=== PATIENT | female | born 1945 | race Caucasian/White ===

== ENCOUNTER 2017-11-02 23:03 | Inpatient (IN) | payer MEDICARE, OTHER ==
[~2017-11-02] VITALS: Ht 152.4 cm; Wt 40.8 kg
[2017-11-03 03:30] VITALS: BP 91/46
[2017-11-03] MEDS ORDERED: FUROSEMIDE 40 MG/4 ML VIAL IV SCH ×2 (05:00→17:00)
[2017-11-03] MEDS ORDERED: VANCOMYCIN 1 GM in IV D5W 250 ML IV ONE (05:00)
[2017-11-03] MEDS ORDERED: MAGNESIUM HYDROXIDE 30 ML UDC PO PRN (05:00)
[2017-11-03] MEDS ORDERED: ZOLPIDEM TARTRATE 5 MG TABLET PO PRN (05:00)
[2017-11-03] MEDS ORDERED: ONDANSETRON HCL/PF 4 MG/2 ML VIAL IVP PRN (05:00)
[2017-11-03] MEDS ORDERED: Z GUARD REMEDY 2 OZ OINT TP PRN (05:00)
[2017-11-03] MEDS ORDERED: HYDROCODONE/APAP 5/325MG 1 EACH TABLET PO PRN (05:00)
[2017-11-03] MEDS ORDERED: MAG HYDROX/AL HYDROX/SIMETH 30 ML UDC PO PRN (05:00)
[2017-11-03] MEDS ORDERED: CARV3.12 PO (05:02)
[2017-11-03] MEDS ORDERED: LEVO25TA7 PO (05:02)
[2017-11-03] MEDS ORDERED: PIPERACILLIN /TAZOBACTAM 3.375 G VIAL IV ONE (05:19)
[2017-11-03] MEDS ORDERED: VANCOMYCIN 1 GM VIAL ONE (05:19)
[2017-11-03 05:48] VITALS: BP 95/56
[2017-11-03] MEDS ORDERED: PIPERACILLIN /TAZOBACTAM 3.375 G in IV NS 0.9% 50 ML IV SCH (06:00)
[2017-11-03 08:00] VITALS: BP 97/41
[2017-11-03] MEDS ORDERED: LEVALBUTEROL HCL NEB 1.25 MG/0.5 ML VIAL.NEB IH SCH (11:30)
[2017-11-03] MEDS: PIPERACILLIN /TAZOBACTAM 2.25 G in IV D5W 50 ML IV SCH ×2 (12:12→19:49)
[2017-11-03] MEDS: IV NS 0.9% 1,000 ML IV PRN (12:12)
[2017-11-03] MEDS ORDERED: FEE PK DOSING 1 MIN EA MC ONE (12:42)
[2017-11-03] MEDS: ASPIRIN 81 MG TAB.CHEW PO SCH (12:44)
[2017-11-03] MEDS: PANTOPRAZOLE 40 MG TABLET.DR PO SCH (12:44)
[2017-11-03 13:27] LABS: MAGNESIUM 2.1 mg/dL (1.8-2.4)
[2017-11-03] MEDS: ALBUTEROL FS 2.5 MG/3 ML VIAL.NEB NEB SCH ×2 (14:51→19:43)
[2017-11-03] MEDS: ACETYLCYSTEINE 10% SOLN 400 MG/4 ML VIAL NEB SCH ×2 (15:30→23:12)
[2017-11-03] MEDS: ACETAMINOPHEN 325 MG TABLET PO PRN ×2 (15:59→22:22)
[2017-11-03] MEDS: VANCOMYCIN 500 MG in IV D5W 100 ML IV SCH (16:00)
[2017-11-03 16:30] VITALS: BP 98/52
[2017-11-03 20:00] VITALS: BP 97/54
[2017-11-04] MEDS: PIPERACILLIN /TAZOBACTAM 2.25 G in IV D5W 50 ML IV SCH ×4 (00:58→17:48)
[2017-11-04] MEDS: IV NS 0.9% 1,000 ML IV PRN ×2 (00:59→21:11)
[2017-11-04] MEDS: ALBUTEROL FS 2.5 MG/3 ML VIAL.NEB NEB SCH ×4 (01:10→20:06)
[2017-11-04] MEDS: VANCOMYCIN 500 MG in IV D5W 100 ML IV SCH ×2 (05:32→16:18)
[2017-11-04 07:03] LABS: BASOPHILS % (AUTO) 0.2 % (0.0-2.0); EOSINOPHILS # (AUTO) 0.3 /CMM (0.0-0.7); EOSINOPHILS % (AUTO) 1.4 % (0.0-6.0); HEMATOCRIT 31 % (33-45); HEMOGLOBIN 10.4 g/dL (11.5-14.8); LYMPHOCYTES % (AUTO) 8.8 % (20.0-44.0); MEAN CORPUSCULAR HEMOGLOBIN 33 PG (26.0-33.0); MEAN CORPUSCULAR HGB CONC 34 g/dl (31.0-36.0); MEAN CORPUSCULAR VOLUME 96 fL (82-100); MONOCYTES # (AUTO) 1.1 /CMM (0.1-1.30); MONOCYTES % (AUTO) 4.6 % (2.0-12.0); NEUTROPHILS # (AUTO) 19.3 /CMM (1.8-8.9); PLATELET COUNT (AUTO) 296 /CMM (150-450); RDW COEFFICIENT OF VARIATION 14.1 (11.5-15.0); RED BLOOD CELL COUNT(AUTO) 3.19 MIL/uL (4.0-5.2); WHITE BLOOD COUNT (AUTO) 22.8 K/uL (4.3-11.0)
[2017-11-04] MEDS: ACETYLCYSTEINE 10% SOLN 400 MG/4 ML VIAL NEB SCH ×2 (07:18→15:30)
[2017-11-04 07:21] LABS: CALCIUM, SERUM 8.1 mg/dL (8.5-10.1); CREATININE 0.8 mg/dL (0.6-1.3); PHOSPHORUS 3.7 mg/dL (2.5-4.9); POTASSIUM 3.1 mmol/L (3.5-5.1)
[2017-11-04 07:23] LABS: THYROID STIMULATING HORMONE 3.589 uIU/mL (0.358-3.74)
[2017-11-04 08:00] VITALS: BP 91/48
[2017-11-04] MEDS: PANTOPRAZOLE 40 MG TABLET.DR PO SCH (08:25)
[2017-11-04] MEDS: LEVOTHYROXINE SODIUM 25 MCG TABLET PO SCH (08:25)
[2017-11-04] MEDS: ASPIRIN 81 MG TAB.CHEW PO SCH (08:25)
[2017-11-04 08:57] VITALS: BP 91/48
[2017-11-04 09:35] LABS: BAND % (MANUAL) 2 % (0.0-5.0); EOSINOPHILS % (MANUAL) 3 % (0-4); LYMPHOCYTES % (MANUAL) 8 % (16-48); MONOCYTES % (MANUAL) 5 % (0-11.0); NEUTROPHILS % (MANUAL) 82 (42-76)
[2017-11-04] MEDS: POTASSIUM CHLORIDE 20 MEQ TAB.PRT.SR PO SCH ×2 (12:43→13:57)
[2017-11-04] MEDS ORDERED: NA PHOS,M-B/NA PHOS,DI-BA 1 EA ENEMA RC PRN (14:30)
[2017-11-04] MEDS ORDERED: MAGNESIUM CITRATE 296 ML BOTTLE PO ONE (15:00)
[2017-11-04] MEDS ORDERED: PEG 3350/NA SULF,BICARB,CL/KCL 4,000 ML BOTTLE PO ONE (15:00)
[2017-11-04 16:00] VITALS: BP 100/58
[2017-11-04 16:30] LABS: ALBUMIN 1.8 g/dL (3.4-5.0); BILIRUBIN,DIRECT 0.2 mg/dL (0.0-0.2); BILIRUBIN,TOTAL 0.6 mg/dL (0.2-1.0); CALCIUM, SERUM 8.1 mg/dL (8.5-10.1); CREATININE 0.8 mg/dL (0.6-1.3); POTASSIUM 3.2 mmol/L (3.5-5.1); TOTAL PROTEIN, SERUM 6.5 g/dL (6.4-8.2)
[2017-11-04 20:00] VITALS: BP 98/47
[2017-11-04] MEDS: methylPREDNISolone SOD SUCC 40 MG/ML VIAL IV SCH (21:28)
[2017-11-04] MEDS: ACETAMINOPHEN 325 MG TABLET PO PRN (21:29)
[2017-11-05] MEDS: ACETYLCYSTEINE 10% SOLN 400 MG/4 ML VIAL NEB SCH ×3 (00:32→14:37)
[2017-11-05] MEDS: ALBUTEROL FS 2.5 MG/3 ML VIAL.NEB NEB SCH ×4 (00:34→20:40)
[2017-11-05] MEDS: PIPERACILLIN /TAZOBACTAM 2.25 G in IV D5W 50 ML IV SCH ×5 (00:37→23:40)
[2017-11-05 04:37] LABS: CALCIUM, SERUM 8.6 mg/dL (8.5-10.1); CREATININE 0.7 mg/dL (0.6-1.3); POTASSIUM 3.9 mmol/L (3.5-5.1)
[2017-11-05] MEDS: methylPREDNISolone SOD SUCC 40 MG/ML VIAL IV SCH (05:54)
[2017-11-05] MEDS: VANCOMYCIN 500 MG in IV D5W 100 ML IV SCH (06:31)
[2017-11-05] MEDS: IV NS 0.9% 1,000 ML IV PRN ×2 (06:49→23:40)
[2017-11-05 08:00] VITALS: BP_SYST 114; BP_DIAS 60; BP_DIAS 69
[2017-11-05] MEDS: ASPIRIN 81 MG TAB.CHEW PO SCH (10:14)
[2017-11-05] MEDS: PANTOPRAZOLE 40 MG TABLET.DR PO SCH (10:14)
[2017-11-05] MEDS: LEVOTHYROXINE SODIUM 25 MCG TABLET PO SCH (10:14)
[2017-11-05 11:40] LABS: BASOPHILS % (AUTO) 0.3 % (0.0-2.0); EOSINOPHILS % (AUTO) 0.1 % (0.0-6.0); HEMATOCRIT 33 % (33-45); HEMOGLOBIN 10.7 g/dL (11.5-14.8); LYMPHOCYTES % (AUTO) 6.6 % (20.0-44.0); MEAN CORPUSCULAR HEMOGLOBIN 32 PG (26.0-33.0); MEAN CORPUSCULAR HGB CONC 33 g/dl (31.0-36.0); MEAN CORPUSCULAR VOLUME 98 fL (82-100); MONOCYTES # (AUTO) 0.1 /CMM (0.1-1.30); MONOCYTES % (AUTO) 0.8 % (2.0-12.0); NEUTROPHILS # (AUTO) 13.3 /CMM (1.8-8.9); NEUTROPHILS % (AUTO) 92.2 % (43.0-81.0); PLATELET COUNT (AUTO) 361 /CMM (150-450); RDW COEFFICIENT OF VARIATION 15.2 (11.5-15.0); RED BLOOD CELL COUNT(AUTO) 3.34 MIL/uL (4.0-5.2); WHITE BLOOD COUNT (AUTO) 14.4 K/uL (4.3-11.0)
[2017-11-05 16:00] VITALS: BP 114/56
[2017-11-05] MEDS: VANCOMYCIN 0.75 GM in IV D5W 250 ML IV SCH (17:59)
[2017-11-05 20:00] VITALS: BP 104/63
[2017-11-05] MEDS: SOD FERRIC GLUC 125 MG in IV NS 0.9% 100 ML IV SCH (21:00)
[2017-11-05 23:59] LABS: APPEARANCE,URINE CLOUDY (CLEAR); BILIRUBIN,URINE NEGATIVE (NEGATIVE); BLOOD, URINE 3+ Ery/uL (NEGATIVE); COLOR,URINE YELLOW (YELLOW); KETONES,URINE NEGATIVE (NEGATIVE); LEUKOCYTE ESTERASE ,URINE NEGATIVE (NEGATIVE); NITRITE, URINE NEGATIVE (NEGATIVE); PROTEIN,URINE 1+ mg/dl (NEGATIVE); UGLUCOSE NEGATIVE (NEGATIVE)
[2017-11-06 00:04] LABS: BACTERIA,URINE Moderate /HPF (None Seen); SQUAMOUS EPITHELIAL CELL,UR None Seen /HPF (None Seen); URINE AMORPHOUS URATE Many /HPF (None Seen); WBC,URINE 0-2 /HPF (0-3)
[2017-11-06] MEDS: ACETYLCYSTEINE 10% SOLN 400 MG/4 ML VIAL NEB SCH ×4 (00:17→23:30)
[2017-11-06] MEDS: ALBUTEROL FS 2.5 MG/3 ML VIAL.NEB NEB SCH ×4 (02:12→20:12)
[2017-11-06] MEDS: VANCOMYCIN 0.75 GM in IV D5W 250 ML IV SCH ×2 (04:20→17:42)
[2017-11-06] MEDS: PIPERACILLIN /TAZOBACTAM 2.25 G in IV D5W 50 ML IV SCH ×4 (06:28→23:27)
[2017-11-06 07:37] LABS: CALCIUM, SERUM 8.5 mg/dL (8.5-10.1); CREATININE 0.7 mg/dL (0.6-1.3); POTASSIUM 3.4 mmol/L (3.5-5.1)
[2017-11-06 08:00] VITALS: BP 118/61
[2017-11-06] MEDS: ASPIRIN 81 MG TAB.CHEW PO SCH (08:54)
[2017-11-06] MEDS: LEVOTHYROXINE SODIUM 25 MCG TABLET PO SCH (08:55)
[2017-11-06] MEDS: PANTOPRAZOLE 40 MG TABLET.DR PO SCH (08:55)
[2017-11-06] MEDS ORDERED: POTASSIUM CHLORIDE 20 MEQ TAB.PRT.SR PO SCH (12:30)
[2017-11-06 16:00] VITALS: BP 108/66
[2017-11-06] MEDS ORDERED: DOXYCYCLINE 100 MG in IV D5W 100 ML IV SCH (18:21)
[2017-11-06 20:00] VITALS: BP 109/58
[2017-11-06] MEDS: SOD FERRIC GLUC 125 MG in IV NS 0.9% 100 ML IV SCH (20:29)
[2017-11-06] MEDS: DOXYCYCLINE 100 MG in IV D5W 100 ML IV SCH (21:31)
[2017-11-06] MEDS: IV NS 0.9% 1,000 ML IV PRN (21:53)
[2017-11-07] MEDS: ALBUTEROL FS 2.5 MG/3 ML VIAL.NEB NEB SCH ×4 (01:58→19:55)
[2017-11-07] MEDS: ACETAMINOPHEN 325 MG TABLET PO PRN ×3 (02:41→22:19)
[2017-11-07] MEDS: VANCOMYCIN 0.75 GM in IV D5W 250 ML IV SCH ×2 (05:23→17:12)
[2017-11-07] MEDS: PIPERACILLIN /TAZOBACTAM 2.25 G in IV D5W 50 ML IV SCH ×3 (06:31→18:11)
[2017-11-07] MEDS: ACETYLCYSTEINE 10% SOLN 400 MG/4 ML VIAL NEB SCH ×3 (07:29→23:26)
[2017-11-07 07:52] LABS: BASOPHILS % (AUTO) 0.4 % (0.0-2.0); EOSINOPHILS # (AUTO) 0.2 /CMM (0.0-0.7); EOSINOPHILS % (AUTO) 1.8 % (0.0-6.0); HEMATOCRIT 28 % (33-45); HEMOGLOBIN 9.3 g/dL (11.5-14.8); LYMPHOCYTES # (AUTO) 2.3 /CMM (0.8-4.8); LYMPHOCYTES % (AUTO) 21.6 % (20.0-44.0); MEAN CORPUSCULAR HEMOGLOBIN 33 PG (26.0-33.0); MEAN CORPUSCULAR HGB CONC 34 g/dl (31.0-36.0); MEAN CORPUSCULAR VOLUME 97 fL (82-100); MONOCYTES # (AUTO) 0.4 /CMM (0.1-1.30); MONOCYTES % (AUTO) 3.6 % (2.0-12.0); NEUTROPHILS # (AUTO) 7.6 /CMM (1.8-8.9); NEUTROPHILS % (AUTO) 72.6 % (43.0-81.0); PLATELET COUNT (AUTO) 405 /CMM (150-450); RDW COEFFICIENT OF VARIATION 14.9 (11.5-15.0); RED BLOOD CELL COUNT(AUTO) 2.85 MIL/uL (4.0-5.2); WHITE BLOOD COUNT (AUTO) 10.4 K/uL (4.3-11.0)
[2017-11-07 08:00] VITALS: BP 103/49
[2017-11-07 08:09] LABS: CALCIUM, SERUM 8.3 mg/dL (8.5-10.1); CREATININE 0.8 mg/dL (0.6-1.3)
[2017-11-07] MEDS: ASPIRIN 81 MG TAB.CHEW PO SCH ×2 (09:00→09:53)
[2017-11-07] MEDS: PANTOPRAZOLE 40 MG TABLET.DR PO SCH (09:53)
[2017-11-07] MEDS: DOXYCYCLINE 100 MG in IV D5W 100 ML IV SCH ×2 (09:53→21:25)
[2017-11-07] MEDS: LEVOTHYROXINE SODIUM 25 MCG TABLET PO SCH (09:53)
[2017-11-07] MEDS: POTASSIUM CHLORIDE 20 MEQ TAB.PRT.SR PO SCH ×3 (11:56→14:35)
[2017-11-07] MEDS: SOD FERRIC GLUC 125 MG in IV NS 0.9% 100 ML IV SCH (14:35)
[2017-11-07 16:00] VITALS: BP 119/60
[2017-11-07] MEDS: SUCRALFATE 1 G/10 ML UDC GT SCH (17:12)
[2017-11-07 18:31] LABS: OCCULT BLOOD STOOL NEGATIVE (NEGATIVE)
[2017-11-07 20:00] VITALS: BP 116/61
[2017-11-08] MEDS: PIPERACILLIN /TAZOBACTAM 2.25 G in IV D5W 50 ML IV SCH ×5 (00:24→23:51)
[2017-11-08] MEDS: ALBUTEROL FS 2.5 MG/3 ML VIAL.NEB NEB SCH ×4 (01:30→20:34)
[2017-11-08] MEDS: VANCOMYCIN 0.75 GM in IV D5W 250 ML IV SCH ×2 (05:05→16:58)
[2017-11-08] MEDS: IV NS 0.9% 1,000 ML IV PRN (05:06)
[2017-11-08] MEDS: ACETYLCYSTEINE 10% SOLN 400 MG/4 ML VIAL NEB SCH ×3 (07:35→23:37)
[2017-11-08 08:00] VITALS: BP 108/60
[2017-11-08 08:08] LABS: BASOPHILS % (AUTO) 0.3 % (0.0-2.0); EOSINOPHILS # (AUTO) 0.3 /CMM (0.0-0.7); EOSINOPHILS % (AUTO) 3.3 % (0.0-6.0); HEMATOCRIT 27 % (33-45); HEMOGLOBIN 9.3 g/dL (11.5-14.8); LYMPHOCYTES # (AUTO) 1.9 /CMM (0.8-4.8); LYMPHOCYTES % (AUTO) 18.3 % (20.0-44.0); MEAN CORPUSCULAR HEMOGLOBIN 33 PG (26.0-33.0); MEAN CORPUSCULAR HGB CONC 34 g/dl (31.0-36.0); MEAN CORPUSCULAR VOLUME 97 fL (82-100); MONOCYTES # (AUTO) 0.1 /CMM (0.1-1.30); MONOCYTES % (AUTO) 1.4 % (2.0-12.0); NEUTROPHILS # (AUTO) 7.9 /CMM (1.8-8.9); NEUTROPHILS % (AUTO) 76.7 % (43.0-81.0); PLATELET COUNT (AUTO) 400 /CMM (150-450); RDW COEFFICIENT OF VARIATION 14.3 (11.5-15.0); RED BLOOD CELL COUNT(AUTO) 2.82 MIL/uL (4.0-5.2); WHITE BLOOD COUNT (AUTO) 10.3 K/uL (4.3-11.0)
[2017-11-08 08:25] LABS: CALCIUM, SERUM 8.4 mg/dL (8.5-10.1); CREATININE 0.7 mg/dL (0.6-1.3); POTASSIUM 3.9 mmol/L (3.5-5.1)
[2017-11-08] MEDS: DOXYCYCLINE 100 MG in IV D5W 100 ML IV SCH ×2 (09:10→20:31)
[2017-11-08] MEDS: ACETAMINOPHEN 325 MG TABLET PO PRN ×2 (09:11→20:34)
[2017-11-08] MEDS: SUCRALFATE 1 G/10 ML UDC GT SCH ×3 (09:11→16:54)
[2017-11-08] MEDS: ASPIRIN 81 MG TAB.CHEW PO SCH (09:11)
[2017-11-08] MEDS: PANTOPRAZOLE 40 MG TABLET.DR PO SCH (09:12)
[2017-11-08] MEDS: LEVOTHYROXINE SODIUM 25 MCG TABLET PO SCH (09:14)
[2017-11-08] MEDS: SOD FERRIC GLUC 125 MG in IV NS 0.9% 100 ML IV SCH (13:37)
[2017-11-08 15:22] LABS: QFT MITOGEN VALUE 0.22 IU/mL (.); QFT TB AG MINUS NIL VALUE <0.00 IU/mL (.); QFT TB AG VALUE 0.02 IU/mL (.); QFT TB GOLD Indeterminate (Negative)
[2017-11-08 16:00] VITALS: BP 111/19
[2017-11-08] MEDS ORDERED: ACETYLCYSTEINE 20% SOLN 800 MG/4 ML VIAL ONE (19:13)
[2017-11-08 20:00] VITALS: BP 99/46
[2017-11-08 20:30] VITALS: BP 102/59
[2017-11-09] MEDS ORDERED: ENOXAPARIN SODIUM 40 MG/0.4 ML DISP.SYRIN SQ SCH (00:30)
[2017-11-09] MEDS: ALBUTEROL FS 2.5 MG/3 ML VIAL.NEB NEB SCH ×4 (00:43→20:45)
[2017-11-09] MEDS ORDERED: ENOXAPARIN SODIUM 40 MG/0.4 ML DISP.SYRIN SQ ONE (01:00)
[2017-11-09] MEDS: VANCOMYCIN 0.75 GM in IV D5W 250 ML IV SCH ×2 (04:40→17:30)
[2017-11-09] MEDS: PIPERACILLIN /TAZOBACTAM 2.25 G in IV D5W 50 ML IV SCH ×3 (06:30→18:41)
[2017-11-09 07:20] LABS: CREATININE 0.9 mg/dL (0.6-1.3); POTASSIUM 3.7 mmol/L (3.5-5.1)
[2017-11-09 08:00] VITALS: BP 108/65
[2017-11-09] MEDS: ACETYLCYSTEINE 10% SOLN 400 MG/4 ML VIAL NEB SCH ×2 (08:20→16:18)
[2017-11-09] MEDS: SUCRALFATE 1 G/10 ML UDC GT SCH ×3 (08:39→17:26)
[2017-11-09] MEDS: LEVOTHYROXINE SODIUM 25 MCG TABLET PO SCH (08:41)
[2017-11-09] MEDS: ASPIRIN 81 MG TAB.CHEW PO SCH (08:41)
[2017-11-09] MEDS: PANTOPRAZOLE 40 MG TABLET.DR PO SCH (08:41)
[2017-11-09] MEDS: DOXYCYCLINE 100 MG in IV D5W 100 ML IV SCH ×2 (09:25→21:42)
[2017-11-09] MEDS: SOD FERRIC GLUC 125 MG in IV NS 0.9% 100 ML IV SCH (14:15)
[2017-11-09 16:00] VITALS: BP 108/59
[2017-11-09 20:00] VITALS: BP 106/62
[2017-11-09 22:00] VITALS: BP 106/62
[2017-11-10] MEDS: ALBUTEROL FS 2.5 MG/3 ML VIAL.NEB NEB SCH ×4 (00:33→19:27)
[2017-11-10] MEDS: ACETYLCYSTEINE 10% SOLN 400 MG/4 ML VIAL NEB SCH ×4 (00:34→23:30)
[2017-11-10] MEDS: PIPERACILLIN /TAZOBACTAM 2.25 G in IV D5W 50 ML IV SCH ×4 (00:47→17:32)
[2017-11-10] MEDS: ACETAMINOPHEN 325 MG TABLET PO PRN ×2 (00:52→22:06)
[2017-11-10 08:00] VITALS: BP 119/66
[2017-11-10 08:53] LABS: CALCIUM, SERUM 8.4 mg/dL (8.5-10.1); CREATININE 0.9 mg/dL (0.6-1.3); MAGNESIUM 1.6 mg/dL (1.8-2.4); PHOSPHORUS 2.9 mg/dL (2.5-4.9); POTASSIUM 3.9 mmol/L (3.5-5.1)
[2017-11-10 09:14] LABS: BASOPHILS # (AUTO) 0.1 /CMM (0.0-0.2); BASOPHILS % (AUTO) 0.5 % (0.0-2.0); EOSINOPHILS # (AUTO) 0.4 /CMM (0.0-0.7); EOSINOPHILS % (AUTO) 3.1 % (0.0-6.0); HEMATOCRIT 26 % (33-45); HEMOGLOBIN 8.8 g/dL (11.5-14.8); LYMPHOCYTES # (AUTO) 2.1 /CMM (0.8-4.8); LYMPHOCYTES % (AUTO) 18.1 % (20.0-44.0); MEAN CORPUSCULAR HEMOGLOBIN 33 PG (26.0-33.0); MEAN CORPUSCULAR HGB CONC 34 g/dl (31.0-36.0); MEAN CORPUSCULAR VOLUME 97 fL (82-100); MONOCYTES # (AUTO) 0.4 /CMM (0.1-1.30); MONOCYTES % (AUTO) 3.3 % (2.0-12.0); NEUTROPHILS # (AUTO) 8.7 /CMM (1.8-8.9); PLATELET COUNT (AUTO) 415 /CMM (150-450); RDW COEFFICIENT OF VARIATION 14.4 (11.5-15.0); RED BLOOD CELL COUNT(AUTO) 2.72 MIL/uL (4.0-5.2); WHITE BLOOD COUNT (AUTO) 11.6 K/uL (4.3-11.0)
[2017-11-10] MEDS: DOXYCYCLINE 100 MG in IV D5W 100 ML IV SCH (09:47)
[2017-11-10] MEDS: SUCRALFATE 1 G/10 ML UDC GT SCH ×3 (09:47→17:31)
[2017-11-10] MEDS: ASPIRIN 81 MG TAB.CHEW PO SCH (09:47)
[2017-11-10] MEDS: LEVOTHYROXINE SODIUM 25 MCG TABLET PO SCH (09:47)
[2017-11-10] MEDS: PANTOPRAZOLE 40 MG TABLET.DR PO SCH (09:47)
[2017-11-10] MEDS: Magnesium 1GM/D5W 100ML PREMIX 100 ML IV SCH ×2 (11:18→14:00)
[2017-11-10 16:00] VITALS: BP 104/52
[2017-11-10 20:00] VITALS: BP 104/61
[2017-11-10 22:00] VITALS: BP 104/61
[2017-11-11] MEDS: ALBUTEROL FS 2.5 MG/3 ML VIAL.NEB NEB SCH ×4 (01:10→19:17)
[2017-11-11] MEDS: PIPERACILLIN /TAZOBACTAM 2.25 G in IV D5W 50 ML IV SCH ×4 (01:33→17:10)
[2017-11-11] MEDS: IV NS 0.9% 1,000 ML IV PRN (06:12)
[2017-11-11 06:50] LABS: CALCIUM, SERUM 8.3 mg/dL (8.5-10.1); CREATININE 0.8 mg/dL (0.6-1.3); MAGNESIUM 2.2 mg/dL (1.8-2.4); POTASSIUM 3.8 mmol/L (3.5-5.1)
[2017-11-11] MEDS: ACETYLCYSTEINE 10% SOLN 400 MG/4 ML VIAL NEB SCH ×3 (07:16→23:30)
[2017-11-11 07:30] VITALS: BP 110/64
[2017-11-11 08:00] VITALS: BP 108/55
[2017-11-11] MEDS: PANTOPRAZOLE 40 MG TABLET.DR PO SCH (08:37)
[2017-11-11] MEDS: ASPIRIN 81 MG TAB.CHEW PO SCH (08:38)
[2017-11-11] MEDS: LEVOTHYROXINE SODIUM 25 MCG TABLET PO SCH (08:38)
[2017-11-11] MEDS: SUCRALFATE 1 G/10 ML UDC GT SCH ×3 (08:38→17:10)
[2017-11-11 16:00] VITALS: BP 98/48
[2017-11-11 20:00] VITALS: BP 97/56
[2017-11-11] MEDS ORDERED: POLYVINYL ALCOHOL 15 ML BOTTLE EACHEYE PRN (21:30)
[2017-11-11] MEDS: ACETAMINOPHEN 325 MG TABLET PO PRN (23:50)
[2017-11-12] MEDS: ALBUTEROL FS 2.5 MG/3 ML VIAL.NEB NEB SCH ×4 (01:31→20:49)
[2017-11-12 06:23] LABS: BASOPHILS # (AUTO) 0.1 /CMM (0.0-0.2); BASOPHILS % (AUTO) 0.7 % (0.0-2.0); EOSINOPHILS # (AUTO) 0.2 /CMM (0.0-0.7); EOSINOPHILS % (AUTO) 1.6 % (0.0-6.0); HEMATOCRIT 26 % (33-45); HEMOGLOBIN 8.6 g/dL (11.5-14.8); LYMPHOCYTES # (AUTO) 2.6 /CMM (0.8-4.8); LYMPHOCYTES % (AUTO) 20.8 % (20.0-44.0); MEAN CORPUSCULAR HEMOGLOBIN 33 PG (26.0-33.0); MEAN CORPUSCULAR HGB CONC 34 g/dl (31.0-36.0); MEAN CORPUSCULAR VOLUME 98 fL (82-100); MONOCYTES # (AUTO) 0.7 /CMM (0.1-1.30); MONOCYTES % (AUTO) 5.7 % (2.0-12.0); NEUTROPHILS # (AUTO) 8.9 /CMM (1.8-8.9); NEUTROPHILS % (AUTO) 71.2 % (43.0-81.0); PLATELET COUNT (AUTO) 436 /CMM (150-450); RDW COEFFICIENT OF VARIATION 14.9 (11.5-15.0); RED BLOOD CELL COUNT(AUTO) 2.61 MIL/uL (4.0-5.2); WHITE BLOOD COUNT (AUTO) 12.6 K/uL (4.3-11.0)
[2017-11-12 06:47] LABS: CALCIUM, SERUM 8.4 mg/dL (8.5-10.1); CREATININE 0.9 mg/dL (0.6-1.3); PHOSPHORUS 3.1 mg/dL (2.5-4.9)
[2017-11-12] MEDS: IV NS 0.9% 1,000 ML IV PRN (06:49)
[2017-11-12] MEDS: ACETYLCYSTEINE 10% SOLN 400 MG/4 ML VIAL NEB SCH ×2 (07:18→13:50)
[2017-11-12 08:00] VITALS: BP 104/60
[2017-11-12] MEDS ORDERED: HYDROCORTISONE ACETATE 25 MG/SUPP.RECT SUPP.RECT RC SCH (09:00)
[2017-11-12] MEDS: SUCRALFATE 1 G/10 ML UDC GT SCH ×3 (09:40→16:26)
[2017-11-12] MEDS: PANTOPRAZOLE 40 MG TABLET.DR PO SCH (09:41)
[2017-11-12] MEDS: LEVOTHYROXINE SODIUM 25 MCG TABLET PO SCH (09:41)
[2017-11-12] MEDS: ASPIRIN 81 MG TAB.CHEW PO SCH (09:41)
[2017-11-12 16:00] VITALS: BP 112/56
[2017-11-12 20:00] VITALS: BP 105/50
== END 2017-11-12 21:00 | disposition home health service (06) | DRG 871 ==
LOC: TELE 11-03 02:55 → MED 11-03 12:47
PROC: 05H533Z Insertion of Infusion Device into Right Subclavian Vein, Percutaneous Approach (ICD-10-PCS; 2017-11-05)
PROC: B546ZZA Ultrasonography of Right Subclavian Vein, Guidance (ICD-10-PCS; 2017-11-05)
PROC: 0DBL8ZX Excision of Transverse Colon, Via Natural or Artificial Opening Endoscopic, Diagnostic (ICD-10-PCS; principal; 2017-11-06 10:41)
PROC: 0DB68ZX Excision of Stomach, Via Natural or Artificial Opening Endoscopic, Diagnostic (ICD-10-PCS; 2017-11-06 10:41)
DX: A41.9 Sepsis, unspecified organism (principal); N17.0 Acute kidney failure with tubular necrosis; J96.01 Acute respiratory failure with hypoxia; E43 Unspecified severe protein-calorie malnutrition; I11.0 Hypertensive heart disease with heart failure; J15.9 Unspecified bacterial pneumonia; E87.2 Acidosis; I82.621 Acute embolism and thrombosis of deep veins of right upper extremity; I50.9 Heart failure, unspecified; J84.112 Idiopathic pulmonary fibrosis; F17.200 Nicotine dependence, unspecified, uncomplicated; D50.9 Iron deficiency anemia, unspecified; E87.1 Hypo-osmolality and hyponatremia; N39.0 Urinary tract infection, site not specified; K25.3 Acute gastric ulcer without hemorrhage or perforation; R64 Cachexia; D63.8 Anemia in other chronic diseases classified elsewhere; E86.0 Dehydration; R65.20 Severe sepsis without septic shock; I70.0 Atherosclerosis of aorta; J20.9 Acute bronchitis, unspecified; E86.1 Hypovolemia; K29.70 Gastritis, unspecified, without bleeding; E87.6 Hypokalemia; E03.9 Hypothyroidism, unspecified; D12.3 Benign neoplasm of transverse colon; M51.37 Other intervertebral disc degeneration, lumbosacral region; J45.909 Unspecified asthma, uncomplicated; N85.4 Malposition of uterus
CPT/HCPCS: 36415; 71045-TC; 71250-TC; 73080-TC; 80048-TC; 80053-TC; 80061-TC; 80076-TC; 80202-TC; 81000-TC; 82272-TC; 82378; 82728-TC; 83540-TC; 83605-TC; 83735-TC; 83880; 84100-TC; 84443-TC; 84484-TC; 85025-TC; 87040-TC; 87070-TC; 87081-TC; 87086-TC; 87116; 87206; 87400; 87899; 88305-TC; 88313-TC; 88342; 93307-TC; 93971-TC; 94799-TC; 97116-TC; 97530-TC; A4216; J1650; J1940; J2405; J2543; J2916; J2920; J3370; J3475; J3490; J7030; J7050; J7060; Z7610

== ENCOUNTER 2017-11-25 12:53 | Outpatient (CLI) | payer MEDICARE, OTHER ==
[~2017-11-25 12:53] MED LIST: CARV3.12 PO; LEVO25TA7 PO
[2017-11-25 14:15] VITALS: BP 106/60
== END 2017-11-25 23:59 | disposition home health service (06) ==
LOC: MSC 12:53
PROVIDERS: ATTEND Internal Medicine
DX: J96.11 Chronic respiratory failure with hypoxia (principal); J84.10 Pulmonary fibrosis, unspecified; J45.909 Unspecified asthma, uncomplicated; E03.9 Hypothyroidism, unspecified; I10 Essential (primary) hypertension; Z99.81 Dependence on supplemental oxygen